=== PATIENT | female | born 1990 | race Caucasian/White ===

== ENCOUNTER 2024-02-17 14:00 | Outpatient (CLI) | payer OTHER, SELFPAY ==
--- NOTE | 2024-02-17 14:00 | CRLHL7_ITS ---
For Patients: As a result of the Cures Act, medical imaging exams and procedure reports are released immediately into your electronic medical record. You may view this report before your referring provider. If you have questions, please contact your health care provider. INDICATION: First trimester scan, establish dates. COMPARISON: None. TECHNIQUE: Real-time palacio-scale imaging of the pelvis was performed. FINDINGS: Sonographic imaging demonstrates a twin living dichorionic diamniotic intrauterine gestation. Twin A: The embryo demonstrates a regular cardiac rate measuring 178 beats per minute. The embryo`s crown-rump length measurement of 2.1 cm corresponds to a gestational age of 8 weeks 5 days with a sonographic due date of 09/23/2024. There is a normal-appearing yolk sac. Twin B: The embryo demonstrates a regular cardiac rate measuring 163 beats per minute. The embryo`s crown-rump length measurement of 1.9 cm corresponds to a gestational age of 8 weeks 3 days with a sonographic due date of 09/25/2024. There is a normal-appearing yolk sac. The cervix is closed. The myometrium appears normal. Hypoechoic left ovarian cyst measures 1.8 x 1.2 x 1.4 cm. Hemorrhagic left ovarian cyst measures 2.0 x 1.7 x 2.0 cm. Right ovary not visualized. There are no suspicious fluid collections noted in the cul-de-sac. IMPRESSION: Twin A: Sonographic gestational age 8 weeks 5 days and a sonographic due date of 09/23/2024. The gestational sac measures 10 weeks 2 days, this is a significance. Twin B: Sonographic gestational age 8 weeks 3 days and a sonographic due date 09/25/2024. Dictated by Kole Still MD @ 02/18/2024 10:03:17 AM (Electronically Signed)
== END 2024-02-17 14:01 | disposition home or self-care (01) ==
LOC: US 14:00
PROVIDERS: Visit Provider Physician Assistant
DX: Z34.91 Encounter for supervision of normal pregnancy, unspecified, first trimester (principal); O30.001 Twin pregnancy, unspecified number of placenta and unspecified number of amniotic sacs, first trimester; Z3A.08 8 weeks gestation of pregnancy; Z12.4 Encounter for screening for malignant neoplasm of cervix
CPT/HCPCS: 76817; 86703; 86706; 86803; 86850; 86900; 86901; 87086; 87340; 87491; 87591; 87624; 88142

== ENCOUNTER 2024-02-17 14:36 | Outpatient (CLI) | payer OTHER, SELFPAY ==
[2024-02-18 00:43] LABS: Chlamydia DNA Amplified* NOT DETECTED (No Detected); GC DNA Amplified* NOT DETECTED (No Detected)
[2024-02-21 08:31] LABS: HPV Source Cervical; HPV, High Risk by TMA Not Detected
== END 2024-02-17 14:37 | disposition home or self-care (01) ==
PROVIDERS: Visit Provider Obstetrics & Gynecology
DX: Z34.91 Encounter for supervision of normal pregnancy, unspecified, first trimester (principal); O30.091 Twin pregnancy, unable to determine number of placenta and number of amniotic sacs, first trimester; Z12.4 Encounter for screening for malignant neoplasm of cervix; Z3A.08 8 weeks gestation of pregnancy
CPT/HCPCS: 86592; 86703; 86704; 86706; 86762; 86787; 86803; 86850; 86900; 86901; 87086; 87340; 87491; 87591; 87624; 87625; 88141; 88142